=== PATIENT | female | born 1985 | race Caucasian/White ===

== ENCOUNTER 2020-05-21 21:31 | Emergency (ER) | payer MEDICAID, SELFPAY ==
[2020-05-21 21:32] VITALS: BP 115/72; PULSE 79; RESP 16; TEMP 36.3; O2SAT 100; BMI 42.5
--- NOTE | 2020-05-21 21:45 | ED.VIS.GEN ---
History of Present Illness Chief Complaint: Abd Pain Informant: Patient Narrative: 34-year-old female states that at approximately 1500 hrs. she developed the pain described as a pressure left side of her anterior abdomen that then moved to her epigastric region. She states it radiates to her back. No nausea vomiting. She has not had a bowel movement today. No increased gas or belching. No history of pancreatitis. The patient states she had a salad for lunch. She tried to eat dinner but was very difficult. She is had 2 prior C-sections but no history of small bowel obstruction. She has nonalcoholic fatty liver disease. No fevers. No chest pain or shortness of breath. He has no history of diabetes. Past Medical History - Allergies and Home Meds Allergies/Adverse Reactions: Allergies No Known Allergies Allergy (Verified 05/21/20 21:32) Primary Care Physician: NOT,DEFINED [NON-STAFF] - Past Medical History: - - Nonalcoholic fatty liver disease Surgical History: - - x2 Lives: Spouse/ Significant Other Smoking Status: Never smoker Drugs: None Review of Systems General: Denies: Chills, Fever, Sweats Eyes: Denies: Visual changes - bilaterally, Diplopia ENT: Denies: Rhinorrhea, Sore throat Cardiovascular: Denies: Chest pain, Palpitations Respiratory: Denies: Dyspnea, Cough, Dyspnea on exertion Gastrointestinal: Reports: Abdominal pain. Denies: Nausea, Vomiting, Diarrhea, Melena, Hematochezia Genitourinary: Denies: Dysuria, Hematuria, Frequency Musculoskeletal: Denies: Back pain, Extremity Pain Skin: Denies: Rash, Wounds Neurological: Denies: Headache, Weakness, Numbness Physical Exam Vital Signs/Narrative: Vital Signs Temp Pulse Resp BP Pulse Ox 05/21/20 21:32 97.3 F L 79 16 115/72 100 Inital Vital Signs reviewed: Yes General: Well nourished, Well developed, Obese, No Acute Distress Head: Normocephalic, Atraumatic Eyes: Perrl, EOMI ENT: Moist mucous membranes, No rhinorrhea Neck: Supple, Nontender Cardiovascular: Regular rate, Regular rhythm, No murmurs Respiratory: No distress, CTA bilaterally, Chest nontender Abdomen: Soft, Nontender, Nondistended, Normal bowel sounds Back: Nontender, Normal Inspection Extremities: Nontender, No edema Skin: Normal color, No rash Neurological: Alert, Oriented x3, Cranial nerves II-XII grossly intact, Normal Strength, Normal Sensation Psychological: Normal affect, Normal Mood Diagnostic/Tx/Re-eval Clinical Impression(s) from Imaging Studies Abdomen/Pelvis CT 05/21/20 22:23 IMPRESSION: 1. Borderline splenomegaly. 2. Right ovarian cyst. 3. Otherwise normal CT of the abdomen and pelvis. Electronically Signed: Jose ArnoldonDO at 23:01 EST Tel [phone], Service support , Laboratory Last Values WBC 8.6 K/mm3 (4.4-11.0) 05/21/20 21:48 RBC 4.59 M/mm3 (4.2-5.4) 05/21/20 21:48 Hgb 12.2 g/dL (12.0-15.0) 05/21/20 21:48 Hct 37.6 % (37-47) 05/21/20 21:48 MCV 81.9 fL (81-99) 05/21/20 21:48 MCH 26.6 pg (27.0-32.0) L 05/21/20 21:48 MCHC 32.4 g/dL (32-36) 05/21/20 21:48 RDW Std Deviation 41.1 fl (35.1-43.9) 05/21/20 21:48 RDW Coeff of Hayley 14.0 % (11.6-14.6) 05/21/20 21:48 Plt Count 279 K/mm3 (150-450) 05/21/20 21:48 MPV 11.8 fl (6.2-12.0) 05/21/20 21:48 Immature Gran % (Auto) 0.200 % (0.0-0.9) 05/21/20 21:48 Neut % (Auto) 68.9 % (47-70) 05/21/20 21:48 Lymph % (Auto) 21.8 % (19-41) 05/21/20 21:48 [place] % (Auto) 7.6 % (0-10) 05/21/20 21:48 Eos % (Auto) 1.2 % (0-5) 05/21/20 21:48 Baso % (Auto) 0.3 % (0-1) 05/21/20 21:48 Absolute Neuts (auto) 5.9 X10^3/uL (2.0-7.7) 05/21/20 21:48 Absolute Lymphs (auto) 1.88 X10^3/uL (0.83-4.51) 05/21/20 21:48 Nucleated RBC % 0 % (0-5) 05/21/20 21:48 Sodium 141 mmol/L (136-145) 05/21/20 21:48 Potassium 3.4 mmol/L (3.5-5.1) L 05/21/20 21:48 Chloride 106 mmol/L (98-107) 05/21/20 21:48 Carbon Dioxide 27.0 mmol/L (21.0-32.0) 05/21/20 21:48 Anion Gap 8 (5-15) 05/21/20 21:48 BUN 10 mg/dL (7-18) 05/21/20 21:48 Creatinine 0.60 mg/dL (0.55-1.02) 05/21/20 21:48 Estim Creat Clear Calc 111.35 ml/min 05/21/20 21:48 Est GFR (MDRD) Af Amer 148 mL/min (>60) 05/21/20 21:48 Est GFR (MDRD) Non-Af 122 mL/min (>60) 05/21/20 21:48 BUN/Creatinine Ratio 16.6 RATIO (10-20) 05/21/20 21:48 Glucose 98 mg/dL (74-106) 05/21/20 21:48 Calcium 9.4 mg/dL (8.5-10.1) 05/21/20 21:48 Total Bilirubin 0.40 mg/dL (0.20-1.00) 05/21/20 21:48 AST 110 U/L (15-37) H 05/21/20 21:48 ALT 89 U/L (13-56) H 05/21/20 21:48 Alkaline Phosphatase 97 U/L (45-117) 05/21/20 21:48 Total Protein 7.6 g/dL (6.4-8.2) 05/21/20 21:48 Albumin 3.8 g/dL (3.2-5.0) 05/21/20 21:48 Globulin 3.8 g/dL (2.2-4.2) 05/21/20 21:48 Albumin/Globulin Ratio 1.0 RATIO (0.9-2.4) 05/21/20 21:48 Lipase 313 U/L (73-393) 05/21/20 21:48 Urine Color Yellow (Yellow) 05/21/20 21:50 Urine Clarity Clear (Clear) 05/21/20 21:50 Urine pH 7.0 (5.0 - 8.0) 05/21/20 21:50 Ur Specific [place] 1.010 (1.002-1.030) 05/21/20 21:50 Urine Protein Negative mg/dl (Negative) 05/21/20 21:50 Urine Glucose (UA) Normal mg/dl (Normal) 05/21/20 21:50 Urine Ketones 5 mg/dl (Negative) H 05/21/20 21:50 Urine Occult Blood Negative /ul (Negative) 05/21/20 21:50 Urine Nitrite Negative (Negative) 05/21/20 21:50 Urine Bilirubin Negative mg/dL (Negative) 05/21/20 21:50 Urine Urobilinogen Normal mg/dl (Normal) 05/21/20 21:50 Ur Leukocyte Esterase Negative /ul (Negative) 05/21/20 21:50 Urine RBC 0 SEEN /hpf (0-5) 05/21/20 21:50 Urine WBC 0 SEEN /hpf (0-5) 05/21/20 21:50 Ur Squamous Epith Cells 0-5 SEEN /hpf (5-10) 05/21/20 21:50 Urine Bacteria RARE /hpf (None Seen) 05/21/20 21:50 Urine Mucus 0 SEEN /hpf (<or=2+) 05/21/20 21:50 Urine Test Negative Negative 05/21/20 21:50 - Medical Decision Making Basic blood work was negative. CT the abdomen pelvis read by radiology as no acute process. Knowing that the patient has this heaviness fullness in her epigastrium her stomach does interestingly seem very filled with food particles. From having had a salad for lunch and not that much for dinner this is what is rather surprising. We will give her a dose of Reglan. Advised her to take some liquids and to advance her diet very slowly if she still having the pressure, morning. If it becomes a persistent issue she may require EGD or GI evaluation. Patient is comfortable with her plan. ED Disposition - Plan for ED Patient: Disposition: Home or Assisted Living Diagnosis: Acute abdominal pain Instructions: ED Abdominal Pain Unkn Cause Fem Prescriptions: Metoclopramide [Reglan] 10 mg PO 4X/DAY PRN #12 tab PRN Reason: Headache Prescription Printed Additional Instructions: Follow-up with primary care
[2020-05-21 22:00] LABS: Absolute Lymphocyte Count 1.88 X10^3/uL (0.83-4.51); Absolute Neutrophil Count 5.9 X10^3/uL (2.0-7.7); Basophil# 0.03 X10^3/uL; Basophil% 0.3 % (0-1); Eosinophils% 1.2 % (0-5); Hematocrit 37.6 % (37-47); Hemoglobin 12.2 g/dL (12.0-15.0); Lymphocyte # 1.88 X10^3/ul (4.0); Lymphocyte % 21.8 % (19-41); Mean Corp Hgb Conc 32.4 g/dL (32-36); Mean Corpuscular Hgb 26.6 pg (27.0-32.0); Mean Corpuscular Volume 81.9 fL (81-99); Mean Platelet Vol. 11.8 fl (6.2-12.0); Monocyte# 0.66 X10^3/uL; Monocyte% 7.6 % (0-10); NRBC Flagged by Analyzer 0 % (0-5); Neutrophil # 5.94 X10^3/uL (2.7-7.7); Neutrophil % 68.9 % (47-70); Platelet Count 279 K/mm3 (150-450); RBC Distribution Width SD 41.1 fl (35.1-43.9); Red Blood Count 4.59 M/mm3 (4.2-5.4); White Blood Count 8.6 K/mm3 (4.4-11.0)
[2020-05-21] MEDS: 0.9% Normal Saline 1,000 ML 1000 ML IV (22:00)
[2020-05-21] MEDS: Ondansetron 4 MG/2 ML Vial IV (22:00)
[2020-05-21] MEDS: Morphine 4 MG/ML Syringe IV (22:00)
[2020-05-21 22:02] LABS: Mucous, Urine 0 SEEN /hpf (<or=2+); Red Blood Cells-Urine 0 SEEN /hpf (0-5); White Blood Cells 0 SEEN /hpf (0-5)
[2020-05-21 22:04] LABS: Color, Urine Yellow (Yellow); Glucose, Dipstick Normal (Normal); Ketone-Dipstick 5 mg/dl (Negative); Leukocyte Esterase-Dipstick Negative /ul (Negative); Nitrite-Dipstick Negative (Negative); Occult Blood-Urine Negative /ul (Negative); Protein-Dipstick Negative (Negative); Urine Bilirubin Dipstick Negative (Negative); Urine Clarity Clear (Clear); Urine Urobilinogen Normal (Normal)
[2020-05-21 22:14] LABS: Bacteria RARE /hpf (None Seen); Internal QC Validated? YES +Cl - CLEAR BKGD; Pregnancy, Urine Negative Negative; Squamous Epithelial Cells - UA 0-5 SEEN /hpf (5-10)
[2020-05-21 22:18] LABS: AST(SGOT) 110 U/L (15-37); Alanine Aminotransfer ALT/SGPT 89 U/L (13-56); Albumin, Serum 3.8 g/dL (3.2-5.0); Alkaline Phosphatase 97 U/L (45-117); Anion Gap 8 (5-15); BUN 10 mg/dL (7-18); BUN/Creat Ratio 16.6 RATIO (10-20); Calcium,Total 9.4 mg/dL (8.5-10.1); Chloride 106 mmol/L (98-107); EST Glomerular Filtration Rate 122 mL/min (>60); Est Glom Filt Rate - Afr Amer 148 mL/min (>60); Estimated Creatinine Clearance 111.35 ml/min; Globulin 3.8 g/dL (2.2-4.2); Glucose 98 mg/dL (74-106); Lipase 313 U/L (73-393); Potassium 3.4 mmol/L (3.5-5.1); Protein, Total 7.6 g/dL (6.4-8.2); Sodium Level 141 mmol/L (136-145)
--- NOTE | 2020-05-21 22:23 | CT_ITS ---
STUDY: CT ABDOMEN AND PELVIS WITH CONTRAST REASON FOR EXAM: Female, 34 years old. Acute upper abdominal pain. RADIATION DOSAGE (If Supplied By Facility): CTDIvol = ( 20.20 ) mGy, DLP = ( 1287.94 ) mGycm TECHNIQUE: Transaxial images were obtained from the dome of the diaphragm to the symphysis pubis without oral contrast. IV 100mL Isovue-300 was administered. Sagittal and coronal images were reconstructed. Individualized dose optimization techniques were used for this CT. COMPARISON: None. FINDINGS: The visualized lung bases are unremarkable. The visualized portions of the heart are within normal limits. Normal liver. Normal gallbladder and extrahepatic biliary system. Borderline splenomegaly without mass. Normal pancreas. Normal bilateral adrenal glands. Normal right kidney. Normal left kidney. Normal ureters. Normal visualized stomach. Normal small intestine. Normal colon. The appendix is visualized and appears normal. Normal abdominal aorta. Normal inferior vena cava. Normal retroperitoneum. Normal urinary bladder. Normal uterus. Question 1.8 cm right adnexal cyst. Normal left ovary. There is no pelvic lymphadenopathy. No free air or free fluid is seen within the peritoneal cavity. Normal abdominal wall. Normal osseous structures. CT/Abdomen/Pelvis W IV Cont ONLY IMPRESSION: 1. Borderline splenomegaly. 2. Right ovarian cyst. 3. Otherwise normal CT of the abdomen and pelvis. Electronically Signed: Jose Sherman DO at 23:01 EST Tel [phone], Service support ,
[2020-05-21] MEDS: Metoclopramide 10 MG Tablet PO (23:30)
[2020-05-21 23:31] VITALS: BP 116/72; PULSE 79; RESP 18; O2SAT 97
== END 2020-05-21 23:31 | disposition home or self-care (01) ==
PROVIDERS: Emergency Provider Emergency Medicine
DX: R10.13 Epigastric pain (principal); K76.0 Fatty (change of) liver, not elsewhere classified; E66.9 Obesity, unspecified
CPT/HCPCS: 74177; 80053; 81001; 81025; 83690; 85025; 96361; 96374; 96375; 99283; J7030; Q9967; A4216

== ENCOUNTER → 2020-09-28 | Outpatient (CLI) | payer MEDICAID, SELFPAY ==
[2020-09-28 10:03] VITALS: BMI 43.1
[2020-09-30 16:44] LABS: HPV APTIMA, High Risk Negative (Negative)
== END | disposition home or self-care (01) ==
PROVIDERS: Visit Provider Nurse Practitioner Women's Health
DX: Z12.4 Encounter for screening for malignant neoplasm of cervix (principal)
CPT/HCPCS: 87624; 88175; G0145

== ENCOUNTER → 2022-01-12 | Outpatient (CLI) | payer MEDICAID, SELFPAY ==
[2022-01-12 09:44] LABS: Vitamin D,25 Hydroxy 28.1 ng/mL
[2022-01-12 09:57] LABS: Cholesterol 180 mg/dL (200); Glucose 91 mg/dL (74-106); High Density Lipoprotein 58 mg/dL; Thyroid Stim Hormone (TSH) 1.74 uIU/mL (0.358-3.74); Triglycerides 119 mg/dL; Very Low Density Lipoprotein 24 mg/dL (5-40)
== END | disposition home or self-care (01) ==
LOC: PAVLAB 08:31
PROVIDERS: Referring Provider Nurse Practitioner Women's Health; Visit Provider Nurse Practitioner Women's Health
DX: Z13.1 Encounter for screening for diabetes mellitus (principal); Z13.220 Encounter for screening for lipoid disorders; Z13.29 Encounter for screening for other suspected endocrine disorder; Z13.21 Encounter for screening for nutritional disorder
CPT/HCPCS: 36415; 80061; 82306; 82947; 84443

== ENCOUNTER 2024-06-29 22:02 | Emergency (ER) | payer SELFPAY ==
[2024-06-29 22:02] VITALS: BP 117/76; PULSE 91; RESP 16; TEMP 36.8; O2SAT 100
--- NOTE | 2024-06-29 22:16 | EX.ED.UPPERE ---
HPI History of Present Illness HPI Narrative: 38-year-old female no stated past medical history. [id number]. She was using scissors when they slipped and lacerated the distal and of her left long finger. This occurred 1 to 2 hours ago. She does not believe her tetanus is up-to-date and will need updated. Denies any other injuries or complaints. Chief Complaint: Laceration Informant: patient and spouse/S.O. Occured/Mechanism Mechanism/Context: Yes injury Onset/Context/Timing Onset: Today Context: Sudden Onset Timing: Continuous Quality of Pain: Sharp Current Severity: Mild Maximum Severity: Mild Narrative Narrative: 38-year-old female [id number] was using scissors when he slipped and lacerated distal end of her left long finger on the ulnar side. This occurred about an hour ago. Tetanus needs updated. Tetanus Immunization: Unknown Prior similar symptoms: No Recent Illness/Hospitalization: No PFSH PFSH Medical History Fingertip amputation Non-alcoholic fatty liver disease Home Medications ?Medication ?Instructions ?Recorded ?Last Taken ?Type levonorgestrel 20.4 mcg/24 hr (up 1 device intrauterine ONCE 11/09/20 Unknown History to 8 yrs) 52 mg intrauterine device (Liletta) phentermine 37.5 mg tablet 37.5 mg PO DAILY 06/29/24 Unknown History topiramate 50 mg tablet 50 mg PO QHS 06/29/24 Unknown History Allergy/AdvReac Type Severity Reaction Status Date / Time No Known Allergies Allergy Verified 06/29/24 22:05 Family History Mother Endometriosis Fibroid tumor Aunt Heart disease Diabetes Surgical History H/O tubal ligation S/P Social History household members: spouse and children number of children: 4 current occupation: [employer] history of recent travel: No sexually active: Yes Smoking Status: Never smoker alcohol intake: current alcohol intake frequency: holidays/special occasions only substance use type: does not use what type of physical activity do you participate in: walking and weight training seatbelt use: always do you feel safe at home: Yes additional social history: - [facility] ROS ED ROS Narrative Denies a recent illness. Constitutional Constitutional ED: Denies chills or fever(s) Eyes Eyes: Denies blurry vision ENT ENT ED: Denies ear pain Cardiovascular Cardiovascular: Denies chest pain or palpitations Respiratory/Chest Respiratory/Chest: Denies cough or dyspnea Gastrointestinal Gastrointestinal: Denies abdominal pain Genitourinary Genitourinary ED: Denies dysuria or hematuria Musculoskeletal Musculoskeletal: Denies back pain Integumentary Denies abscess Neurologic Neurologic: Denies headache(s) Psychiatric Psychiatric: Denies anxiety or depression Endocrine Endocrinology: Denies cold intolerance or heat intolerance Hematologic/Lymphatic Hematologic/Lymphatic: Denies easy bleeding Allergic/Immunologic Allergic/Immunologic ED: Denies mouth swelling, tongue swelling or urticaria EXAM Physical Exam Narrative Exam Narrative: Well-appearing 38-year-old female. Vital signs are stable afebrile. Patient is no acute distress. Accompanied by her significant other. H EENT exam pupils round react to light. Mytrex membranes. No trauma. Lungs clear equal and symmetrical bilaterally. Heart regular rhythm rate about 90 no murmur. Chest wall ribs nontender. Abdomen soft nontender. Back nontender. Moving all 4 extremities. Left hand long finger distal and about a half an inch to an inch from the tip she has a laceration on the palmar ulnar side. Hand is neurovascularly intact. There is a small amount of bleeding. Normal touch sensation. Normal range of motion. No foreign body no infection. No pulsatile bleeding. No bony deformity or bony tenderness. Const Vital Signs: 06/29/24 22:02 Temperature 98.3 F Temperature Source Oral Pulse Rate 91 Respiratory Rate 16 Blood Pressure 117/76 Blood Pressure Mean 89 Pulse Ox 100 Oxygen Delivery Method Room Air Positive well nourished and well developed; Negative for cachectic, contractures or unkempt General Appearance ED: well developed and NAD; Negative for unkempt, cachectic, contractures, cyanotic or diaphoretic Nutritional Appearance: Negative for cachectic HEENT Reports moist mucous membranes normocephalic and atraumatic Eyes PERRL and EOMs intact bilaterally Neck full ROM and supple General: Negative for tenderness Chest Wall inspection of chest normal and palpation of chest normal Resp normal respiratory effort and clear to auscultation bilaterally Auscultation: Negative for rales, rhonchi or wheezes Cardio regular rate, regular rhythm, S1 normal heart sound, S2 normal heart sound and no murmurs GI non-tender, non-distended and no masses Palpation: soft; Negative for tender Back/Spine no CVA tenderness General Back: Negative for CVA tenderness Cervical Spine: Negative for cervical spine tenderness Thoracic Spine / Upper Back: Negative for thoracic spinal tenderness Lumbar Spine / Lower Back: Negative for lumbar spinal tenderness Extremity full ROM; Negative for normal to inspection Extremity Narrative: Left hand neurovascularly intact. Normal flexion extension. Normal touch sensation. Left long finger distal and. Palmar side and ulnar side is about 1+ inch laceration involving skin and subcu tissue. Mild oozing of blood. No pulsatile bleeding. No bony deformity. General Extremety ED: Negative for edema General Extremity: Negative for edema Neuro oriented x3, CN's II-XII intact bilaterally, moves all extremities, no focal motor deficits and no sensory deficits noted Sensorium / Orientation: alert, oriented to person, oriented to place and oriented to time; Negative for orientation impaired or lethargic Motor Exam: strength 5/5 throughout Psych mental status grossly normal Appearance: Negative for unkempt Mood & Affect: Negative for depressed or tearful Skin Lesions: no lesions Rashes: no rashes Trauma: laceration MDM MDM MDM Narrative Medical decision making narrative: 38-year-old female left long finger laceration which will need to be digitally blocked, washed with Shur-Clens and irrigated and washed with saline. Closed using 4-0 Ethilon suture. Tetanus will need updated. She does not need any imaging or labs. History & Record Review Discussion w/independent historian: Patient and Family Additional record(s) reviewed:: Prior inpatient record, Prior outpatient record, Prior ED visit and Prior labs Procedures Lacerations Left long finger distal and laceration repair:: Length: 1 in Depth: Sub Q Shape: Linear Prep: Shure-Clens Laceration repair: Digital block, Irrigated, Lidocaine, Skin sutures and Wound explored Number of Sutures/Jordan: 3 Suture Information: Ethilon, Simple and 4-0 Comment: Left long finger laceration distal end. Approximately 1 inch in length. Digital block. Once proper anesthetic was obtained. Cleaned with Shur-Clens. Washed and irrigated with saline. Explored. Involve the skin and subcu tissue. Closed using 3 simple erupted 4-0 Ethilon sutures. Proper hemostasis wound closure obtained. Patient tolerated procedure well. She was instructed on wound care. Suture removal in 10 days. Turn for any signs of infection. Discharge Plan Triage Chief Complaint: Laceration ED Provider: Darren Arroyo Dx/Rx/DC Orders Clinical Impression: Finger laceration Instructions: ED Laceration, Hand: All Closures Prescriptions: No Action Liletta 20.1 mcg/24 hrs (6 yrs) 52 mg intrauterine device 1 device intrauterine ONCE Rx Instructions: as a single dose phentermine 37.5 mg tablet 37.5 mg PO DAILY topiramate 50 mg tablet 50 mg PO QHS Primary Care Provider: Care Physician,No Primary Referrals: Care Physician,No Primary [Primary Care Provider] - Activity Restrictions/Additional Instructions: Keep dry and clean. You can wash it off just dry it thoroughly. Do not let it soak in any bath water or dishwater. Clean daily with soap and water. Rinse thoroughly. Apply antibiotic ointment daily. Watch for any signs of infection such as pus, redness, swelling or streaks or fever if seen return. Stitches out in 10 days. Tetanus updated should be good for up to 10 years. Print Language: [place] Disposition Disposition: Home, Self Care
[2024-06-29] MEDS: Diphth,Pertuss(Acell),Tet Vac 0.5 ML Vial IM (22:21)
[2024-06-29] MEDS: Lidocaine 1% (20 ml mdv) 20 ML Vial 10 ML INFILT (22:21)
[2024-06-29 22:49] VITALS: RESP 18
== END 2024-06-29 23:26 | disposition home or self-care (01) ==
LOC: ED 22:29
PROVIDERS: Emergency Provider Emergency Medicine; Visit Provider Emergency Medicine
DX: S61.213A Laceration without foreign body of left middle finger without damage to nail, initial encounter (principal); W27.2XXA Contact with scissors, initial encounter
CPT/HCPCS: 12001; 90715; 99283